=== PATIENT | male | born 1955 | race African-American/Black ===

== ENCOUNTER 2017-04-17 06:15 | Day surgery (SDC) | payer OTHER ==
[2017-04-15 11:46] VITALS: BMI 20.7
[2017-04-17] MEDS ORDERED: MIDAZOLAM HCL 2 MG/2 ML SINGLE DOSE VIAL ONE (07:58)
[2017-04-17] MEDS ORDERED: PROPOFOL 20 ML ONE ×2 (07:58)
[2017-04-17] MEDS ORDERED: SUCCINYLCHOLINE CHLORIDE 200 MG/10 ML VIAL ONE (07:59)
[2017-04-17] MEDS ORDERED: LIDOCAINE HCL/PF 2% SDV 5ML VIAL ONE (08:00)
--- NOTE | 2017-04-17 08:22 | HP ---
History & Physical Update - History History: No Change - Physical Physical: No Change Currently as noted:: reducible left inguinal hernia - Assessment Assessment: No Change - Plan Plan: No Change (for left inguinal hernia repair with mesh)
[2017-04-17] MEDS ORDERED: ceFAZolin SODIUM 1 GM VIAL IVPB ONE (08:40)
[2017-04-17] MEDS ORDERED: ePHEDrine SULFATE 50 MG/1 ML AMPULE ONE (08:48)
[2017-04-17] MEDS ORDERED: ceFAZolin SODIUM 1 GM VIAL ONE (09:09)
[2017-04-17] MEDS ORDERED: DEXAMETHASONE SOD PHOSPHATE 4 MG/1 ML VIAL ONE (09:09)
[2017-04-17] MEDS ORDERED: KETOROLAC TROMETHAMINE 30 MG/1 ML VIAL ONE (09:09)
[2017-04-17] MEDS ORDERED: GLYCOPYRROLATE 0.2 MG/1 ML VIAL ONE (09:10)
[2017-04-17] MEDS ORDERED: oxyCODONE HCL 5 MG TABLET PO PRN ×2 (09:17)
[2017-04-17] MEDS ORDERED: ONDANSETRON 4 MG/2 ML VIAL IVPUSH PRN (09:17)
[2017-04-17] MEDS ORDERED: LACTATED RINGERS SOLUTION 1,000 ML IV SCH (09:30)
[2017-04-17] MEDS ORDERED: METOPROLOL TARTRATE 5 MG/5 ML VIAL ONE (09:40)
--- NOTE | 2017-04-17 10:41 | OP ---
Operative Note - Note: Operative Date: 04/17/17 Pre-Operative Diagnosis: left inguinal hernia Operation: left inguinal hernia repair with mesh Findings: indirect hernia, sac ligated and amputated, sent to pathology; 2x4" flat mesh used for repair with lateral space for cord Implants: Bard 2x4" flat mesh Post-Operative Diagnosis: Other (left indirect inguinal hernia) Surgeon: Yfn Garza Cutting Machine Fixer: Howie Wright Anesthesiologist/MECHANIC ASSISTANT: Bess Haile Anesthesia: General (LMA), Local (15ml 1% lidocaine + 0.5% marcaine including ilioinguinal block) Specimens Removed: hernia sac to pathology Estimated Blood Loss (mls): 10 Fluid Volume Replaced (mls): 1,000 (crystalloid) Operative Report Dictated: Yes
[2017-04-17 12:18] VITALS: TEMP 97.5
[2017-04-17 16:47] VITALS: BP 130/70; PULSE 56
--- NOTE | 2017-04-18 13:02 | PATH ---
Surgical Pathology Report Patient Name: ELY STAFFORD [facility]. Rec. #: [id number] /Age/Gender: 1955 (Age: 61) / M Account: [id number] Location: [facility] SURGICAL Taken: 04/17/2017 Received: 04/17/2017 Reported: 04/18/2017 Physicians: Yfn Garza M.D. Specimen(s) Received LEFT HERNIA SAC Clinical History Reducible left inguinal hernia Final Diagnosis HERNIA SAC, LEFT, INGUINAL HERNIA REPAIR: DENSE FIBROCONNECTIVE TISSUE AND ADIPOSE TISSUE CONSISTENT WITH HERNIA SAC. Electronically Signed Deedee Sam M.D. Gross Description Received in formalin labeled "left hernia sac," is a 4.0 x 2.5 x 0.7 cm sommers-pink, irregular portion of fibromembranous tissue, consistent with a hernia sac. Aluminum Pool Installer sections are submitted in one cassette. /04/17/201704/17/2017
--- NOTE | 2017-04-18 22:42 | OP ---
DATE OF OPERATION: 04/17/2017 PREOPERATIVE DIAGNOSIS: Left inguinal hernia. POSTOPERATIVE DIAGNOSIS: Left indirect inguinal hernia. PROCEDURE PERFORMED: Left inguinal hernia repair with mesh. SURGEON: Yfn Garza MD PACKING ROOM WORKER: Deven Wright MS-3 ANESTHESIA: General by LMA and local 15 mL of 1% lidocaine plus 0.5% Marcaine to include an ilioinguinal block. ESTIMATED BLOOD LOSS: 10 mL FLUIDS: 1 L of crystalloid. SPECIMEN: Hernia sac to Pathology. FINDINGS: An indirect hernia. The sac was ligated and amputated and sent to Pathology. A 2 x 4 inch, flat mesh was used for repair with lateral space for the cord. DISPOSITION: Stable to PACU. INDICATIONS FOR PROCEDURE: The patient is a 61-year-old male with hypertension , who was seen in the office several weeks ago with complaints of a left inguinal bulge and discomfort that had been intermittent and progressive over the course of the last several months but present for the last couple of years. He had a previous right inguinal hernia repair and had no complaints on that side, but was found on physical exam to have a small reducible bulge and impulse at the left internal ring. He was seen by his primary medical physician, had current labs done, and presents today for repair. Risks, benefits, and alternatives of left inguinal hernia repair with mesh were discussed with the patient including, but not limited to, bleeding, infection, injury to adjacent structures including vessels and nerves, testicular ischemia or loss, numbness or chronic pain, recurrence of hernia, and mesh infection. The patient wishes to proceed with surgery, and informed consent had been signed in the office. OPERATIVE TECHNIQUE : The patient was brought to the operating room and laid supine on the operating table. Sequential compression devices were applied to bilateral lower extremities, and a gram of Ancef was given as preoperative antibiotic. After induction and placement of an LMA by Anesthesia, the patient' s left groin and lower abdomen were clipped of hair, prepped, and draped in sterile fashion. An oblique incision was made starting from the external ring and pubic tubercle and angled somewhat toward the anterior-superior iliac spine. The incision was made with a scalpel and carried into subcutaneous tissues with electrocautery, until the external oblique fascia was identified and cleared bluntly on its surface. The external ring was identified. The external oblique aponeurosis was incised with the scalpel and opened along the direction of its fibers with Metzenbaum scissors, through the external ring and a short distance superiorly. The leaves were grasped with clamps, and the internal surfaces were also cleared bluntly, revealing the inguinal ligament on the lateral side and the lateral edge of the rectus muscle on the medial side. The cord contents were then elevated off the pubic tubercle bluntly with fingertip dissection and encircled with a [place] drain. Inspection of the cord contents was then undertaken to identify an indirect hernia sac. Portions of cremasteric muscles were divided with electrocautery. Hemostasis was achieved throughout the procedure with electrocautery where needed, and a hernia sac was, indeed, identified. This was carefully from the cord structures themselves, which were identified including the vas deferens, and ensured to be intact throughout the procedure. As the sac was grasped with the tip of a clamp and from the surrounding structures, ultimately, we were able to hold up the sac between the tips of 2 clamps. It was opened with Metzenbaum scissors and a fingertip used to ensure that there were no intraabdominal contents at the base of the sac and that the sac did, indeed, proceed down through the internal ring into the peritoneal cavity. The last bits of surrounding tissue were from the sac once it was opened. It was then suture ligated with a 2-0 Vicryl stitch near the base. The sac was amputated distally and sent for pathology. Once the suture was trimmed and the stump of the sac was reduced through the internal ring back into the abdominal cavity, the field was then briefly irrigated, and a 2 x 4 inch flat mesh chosen for repair. Three corners were trimmed, and it was anchored distally to the pubic tubercle with a 2-0 Prolene stitch. Interrupted 2-0 Prolene sutures were then used to continue securing the mesh laterally up the inguinal ligament, leaving space on the lateral side for the cord to come through. It was then also sewn medially to the lateral edge of the rectus muscle, and the superior tail allowed to lie flat underneath the edge of the external oblique fascia. The space for cord exit was checked and noted to admit a small fingertip alongside the cord. The field was then irrigated with saline solution and noted to be hemostatic. The external oblique fascia was then reclosed with a running 2-0 Vicryl suture, beginning superiorly and ending at the level of the cord, re-creating the external ring. The field was once again irrigated and suctioned clear and noted to be hemostatic. Moon's fascia was reapproximated with several interrupted 3-0 Vicryl sutures, and a subdermal stitch of 3-0 Vicryl was also taken in the mid-portion of the incision. Before the skin was closed with a running 4-0 Biosyn subcuticular suture, local anesthetic was infiltrated into the skin at both sides of the incision, and an ilioinguinal block was also performed just prior to final closure. Benzoin and Steri-Strips were then applied over the incision, and a dressing of gauze and Tegaderm was placed over this. Counts were correct at the end of the procedure. Once the drapes were removed, the patient's testicles were both pulled down into the scrotum and ensured to be in appropriate position. The patient was then awakened, the LMA removed by Anesthesia, and he was moved back to a stretcher and taken to the recovery room in stable condition, having tolerated the procedure well. Yfn Garza M.D. [id number] MTDD
== END 2017-04-17 16:30 | disposition home or self-care (01) ==
LOC: JASU-SURG 06:15
PROVIDERS: ATTEND Surgery
PROC: 0YU60JZ Supplement Left Inguinal Region with Synthetic Substitute, Open Approach (ICD-10-PCS; principal; 2017-04-17 08:00)
DX: K40.90 Unilateral inguinal hernia, without obstruction or gangrene, not specified as recurrent (principal)
CPT/HCPCS: 88302-TC; 94760

== ENCOUNTER 2022-02-11 10:09 | Emergency (ER) | payer OTHER ==
[2022-02-11 10:21] VITALS: BP 155/84; PULSE 87; RESP 18; TEMP 98.8; BMI 20.7
[2022-02-11] MEDS ORDERED: LIDOCAINE HCL/EPINEPHRINE/PF 20 ML VIAL ONE (10:30)
[2022-02-11] MEDS ORDERED: LIDOCAINE HCL 2% (50ML VIAL) DT ONE (10:55)
[2022-02-11] MEDS ORDERED: ACETAMINOPHEN 325 MG TABLET (FP) PO ONE (10:57)
[2022-02-11] MEDS ORDERED: ACETAMINOPHEN 500 MG TABLET (FP) ONE (10:58)
[2022-02-11] MEDS ORDERED: LIDOCAINE 2%/EPINEPHRINE 1:100000 (50 ML MD VIAL) NR ONE (11:10)
== END 2022-02-11 11:20 | disposition home or self-care (01) ==
LOC: FER 10:09
PROC: 0HQFXZZ Repair Right Hand Skin, External Approach (ICD-10-PCS; principal; 2022-02-11)
DX: S61.111A Laceration without foreign body of right thumb with damage to nail, initial encounter (principal)
CPT/HCPCS: 99283-25